=== PATIENT | female | born 1985 | race Asian ===

== ENCOUNTER 2018-01-02 11:09 | Emergency (ER) | payer OTHER, SELFPAY ==
[2018-01-02 11:22] VITALS: BP 119/79; PULSE 76; RESP 16; TEMP 36.9; O2SAT 100; BMI 22.0
--- NOTE | 2018-01-02 11:27 | DI.RAD.S_ITS ---
PROCEDURE: XR HAND LT MIN 3V INDICATIONS: injury TECHNIQUE: 3 views of the hand(s) acquired. COMPARISON: None. FINDINGS: Bones: No fractures or dislocations. Carpal bones are normally aligned. No suspicious bony lesions. Soft tissues: No suspicious soft tissue calcifications. IMPRESSION: No visualized acute fracture or dislocation. However, if clinical concern and/or pain persist, short interval imaging followup in 7-10 days is recommended, as occult injury cannot be definitively excluded. Dictated by: Jessica Hi M.D. on 01/02/2018 at 11:10 Approved by: Jessica Hi M.D. on 01/02/2018 at 11:11
--- NOTE | 2018-01-02 11:27 | DI.RAD.S_ITS ---
PROCEDURE: XR FOREARM RT 2V INDICATIONS: injury TECHNIQUE: 2 views of the forearm were acquired. COMPARISON: None. FINDINGS: Bones: No fractures or dislocations. No suspicious bony lesions. Soft tissues: No suspicious soft tissue calcifications or masses. IMPRESSION: No visualized acute fracture or dislocation. However, if clinical concern and/or pain persist, short interval imaging followup in 7-10 days is recommended, as occult injury cannot be definitively excluded. Dictated by: Jessica Hi M.D. on 01/02/2018 at 11:07 Approved by: Jessica Hi M.D. on 01/02/2018 at 11:10
[2018-01-02 11:29] VITALS: PULSE 70
[2018-01-02] MEDS: IBUPROFEN 400 MG TABLET 800 MG PO (12:04)
[2018-01-02] MEDS: TET,DIPH,PERTUSS(ACELL),VAC/PF 0.5 ML SYRINGE IM (12:05)
--- NOTE | 2018-01-02 12:28 | ED_ITS ---
HPI - Extremity Injury (Upper) General Chief Complaint: Extremity Injury, Upper Stated Complaint: Left hand pain,work injury Time Seen by Provider: 01/02/18 11:42 Source: patient Mode of arrival: ambulatory Limitations: no limitations History of Present Illness HPI narrative: Patient is a 32-year-old female who presents with left arm pain. 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 She has bruising on on the left dorsal side of hand and left upper forearm. She has some numbness and tingling in her fingers but no decreased range of motion. Related Data Previous Rx's Medication Instructions Recorded benzonatate [Tessalon Perles] 100 mg PO TID #21 cap 03/11/17 Allergies Allergy/AdvReac Type Severity Reaction Status Date / Time No Known Allergies Allergy Uncoded 01/02/18 12:17 Review of Systems Review of Systems GENERAL: Denies chills,fever HEENT: Denies throat pain RESPIRATORY: Denies dyspnea, cough, wheezing CARDIOVASCULAR: Denies chest pain, palpitations GASTROINTESTINAL: Denies nausea, vomiting MUSCULOSKELETAL: See HPI SKIN: No rash, no laceration, no pruritus NEUROLOGIC: Denies weakness, dizziness, headache, numbness 8 point review of systems is negative except for those stated above and HPI PFSH Medical History Healthy adult (Acute) Social History Smoking Status: Never smoker Exam Initial Vital Signs Initial Vital Signs: Vital Signs Temperature 98.4 F 01/02/18 11:22 Pulse Rate 76 01/02/18 11:22 Respiratory Rate 16 01/02/18 11:22 Blood Pressure 119/79 01/02/18 11:22 Pulse Oximetry 100 01/02/18 11:22 GENERAL: Well-appearing, well-nourished and in no acute distress. HEENT: Head atraumatic,EOMI, pupils reactive, CARDIOVASCULAR: Regular rate and rhythm without murmurs, rubs or gallops. RESPIRATORY: Breath sounds equal bilaterally, no wheezes rales or rhonchi. EXTREMITIES: Normal range of motion, no clubbing or edema. Neurovascularly intact Left arm has 2 distinct areas of bruising it is not circumferential it is not the entire arm. Good distal pulses. Full range of motion no gross bony deformities. 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 Good opposition of all fingers. NEUROLOGICAL: Alert and oriented x4.Normal gait and speech. SKIN: Contusion left arm, superficial abrasion noted in the left upper arm Extrem Full Arm Back Left: 2 1. Bruise 2. Bruise Course Orders Ordered: ED Orders 01/02/18 11:27 XR forearm LT 2V Stat XR hand LT min 3V Stat Discontinued Medications Diphtheria/Tetanus/Acell Pertussis (Adacel) 0.5 ml IM .ONCE ONE Stop: 01/02/18 11:47 Last Admin: 01/02/18 12:05 Dose: 0.5 ml Ibuprofen (Advil) 800 mg PO NOW ONE Stop: 01/02/18 11:47 Last Admin: 01/02/18 12:04 Dose: 800 mg Vital Signs - 8 hr 01/02/18 11:22 01/02/18 11:29 01/02/18 12:45 Temperature 98.4 F 98.2 F Pulse Rate 76 69 Pulse Rate [Left Radial] 70 Respiratory Rate 16 17 Blood Pressure 119/79 115/67 Pulse Oximetry 100 99 MDM - Extremity Injury (Upper) Imaging Data left schuster x ray: Radiologist's impression: PROCEDURE: XR HAND LT MIN 3V INDICATIONS: injury TECHNIQUE: 3 views of the hand(s) acquired. COMPARISON: None. FINDINGS: Bones: No fractures or dislocations. Carpal bones are normally aligned. No suspicious bony lesions. Soft tissues: No suspicious soft tissue calcifications. IMPRESSION: No visualized acute fracture or dislocation. However, if clinical concern and/or pain persist, short interval imaging followup in 7-10 days is recommended , as occult injury cannot be definitively excluded. Dictated by: Jessica Hi M.D. on 01/02/2018 at 11:10 left arm x ray: Radiologist's impression: PROCEDURE: XR FOREARM RT 2V INDICATIONS: injury TECHNIQUE: 2 views of the forearm were acquired. COMPARISON: None. FINDINGS: Bones: No fractures or dislocations. No suspicious bony lesions. Soft tissues: No suspicious soft tissue calcifications or masses. IMPRESSION: No visualized acute fracture or dislocation. However, if clinical concern and/or pain persist, short interval imaging followup in 7-10 days is recommended , as occult injury cannot be definitively excluded. Dictated by: Jessica Hi M.D. on 01/02/2018 at 11:07 [facility] Narrative Medical decision making narrative: L and I forms completed Discharge Plan Departure Patient Disposition: Home Clinical Impression: Contusion of arm, left, Contusion of hand, left Discharge Date/Time: 01/02/18 12:46 Interventions: ED Discharge Assessment Last Done: 01/02/18 12:45 Instructions: DI for Contusion Activity Restrictions/Additional Instructions: *You have been diagnosed with bruising of left hand and arm *What to do: Ice 20-30 minutes at a time then removed, elevate often, *Continue to take medications as directed Motrin 800 mg every 8 hr if needed for pain *Follow up with your primary care provider in 2-3 days --follow up with L&I and workman's compensation *Return to ER if you should have increasing swelling, numbness, weakness, increased pain or any new, worsening or concerning symptoms Prescriptions: No Action benzonatate [Tesjosé Nash] 100 MG capsule 100 mg PO TID Qty: 21 RF: 0
[2018-01-02 12:45] VITALS: BP 115/67; PULSE 69; RESP 17; TEMP 36.8; O2SAT 99
== END 2018-01-02 12:46 | disposition home or self-care (01) ==
PROVIDERS: Emergency Provider Emergency Medicine
DX: S40.022A Contusion of left upper arm, initial encounter (principal); S60.222A Contusion of left hand, initial encounter; W23.0XXA Caught, crushed, jammed, or pinched between moving objects, initial encounter; Y99.0 Civilian activity done for income or pay
CPT/HCPCS: 73090; 73130; 90471; 99282; 99283; 90715

== ENCOUNTER → 2018-08-17 13:21 | Outpatient (CLI) | payer OTHER, SELFPAY ==
[2018-08-17 19:34] LABS: Urine N gonorrhoeae NOT DETECTED
[2018-08-17 19:41] LABS: Urine Chlamydia NOT DETECTED
== END ==
PROVIDERS: Visit Provider Physician Assistant
DX: N89.8 Other specified noninflammatory disorders of vagina (principal)
CPT/HCPCS: 87210; 87491; 87591

== ENCOUNTER → 2019-08-25 13:01 | Outpatient (CLI) | payer OTHER, SELFPAY ==
--- NOTE | 2019-08-25 | DI.US.S_ITS ---
PROCEDURE: US OB <= 14 WEEKS FETUS INDICATIONS: SIZE AND DATES OUTSIDE/PRIOR DATING DATA: Last menstrual period (LMP): 07/09/19. LMP-based estimated date of delivery (HAYDE): 04/14/20. First dating scan (date and location): 08/25/19. Estimated date of delivery (HAYDE) from first dating scan: 04/18/20. TECHNIQUE: Real-time scanning was performed of the fetus and maternal pelvic organs, with image documentation. Endovaginal scanning was also performed to better visualize the fetus and maternal ovaries. COMPARISON: None. FINDINGS: Embryo: There is single intrauterine gestation with pole and yolk sac seen. heart rate is 118 beats per minute. [place]-rump length measures 4 mm. Estimated gestational age is 6 weeks one day. Estimated gestational age based on last menstrual period is 6 weeks 5 days. No subchorionic bleed. Measurement variability in dating: +/- 4 weeks by LMP, +/- 7 days by mean sac diameter (use before 6 weeks gestation if crown-rump length not able to be measured), +/- 5 days by crown-rump length (up to 8 weeks 6 days gestation), +/- 7 days by crown-rump length (up to 13 weeks 6 days gestation). Maternal organs: Ovaries are not visualized on this study.. Limited images through the kidneys demonstrate no hydronephrosis. IMPRESSION: Single live intrauterine with fetus a yolk sac seen. Estimated gestational age based on current study is 6 weeks one day. Dictated by: Abdelrahman Acevedo M.D. on 08/25/2019 at 15:47 Approved by: Abdelrahman Acevedo M.D. on 08/25/2019 at 15:50
== END ==
PROVIDERS: PCP Student in an Organized Health Care Education/Training Program; Referring Provider Student in an Organized Health Care Education/Training Program; Visit Provider Student in an Organized Health Care Education/Training Program
DX: Z36.87 Encounter for antenatal screening for uncertain dates (principal); Z3A.01 Less than 8 weeks gestation of pregnancy
CPT/HCPCS: 76801; 76817

== ENCOUNTER → 2019-11-25 12:22 | Outpatient (CLI) | payer OTHER, SELFPAY ==
--- NOTE | 2019-11-25 | DI.US.S_ITS ---
PROCEDURE: US OB >= 14 WEEKS FETUS INDICATIONS: SURVEY OUTSIDE/PRIOR DATING DATA: Last menstrual period (LMP): 07/09/2019. LMP-based estimated date of delivery (HAYDE): 04/14/2020 . First dating scan (date and location): 08/25/2019 . Estimated date of delivery (HAYDE) from first dating scan: 04/18/2020 . TECHNIQUE: Real-time scanning was performed of the fetus, with image documentation and biometric measurements. Endovaginal scanning: No COMPARISON: [facility], OB <= 14 WEEKS FETUS, 08/25/2019, 14:10. FINDINGS: General: A single living intrauterine gestation is present. Presentation: Breech. Placenta: Placental position is anterior , without previa. Amniotic fluid index: 12.2 cm, normal range is 5-24 cm. heart rate: 144 beats per minute. Maternal cervical canal: 4.0 cm long. Normal lower limit is 2.5 cm. biometrics: Biparietal diameter: 19 weeks Head circumference: 19 weeks 2 days Abdominal circumference: 19 weeks 5 days Femur length: 19 weeks 2 days Estimated gestational age from initial scan: 19 weeks 2 days Composite gestational age from present scan: 19 weeks 2 days Estimated weight and percentile: 295 g; 57th percentile Measurement variability for biometric dating: +/- 7 days from 14 weeks to 15 weeks 6 days gestation, +/- 10 days from 16 weeks to 21 weeks 6 days gestation, +/- 2 weeks from 22 weeks to 27 weeks 6 days gestation, +/- 3 weeks for 28 weeks gestation or later. weight reference: 4500 g or EFW >90/95% is considered macrosomia or large for gestational age. EFW <10% is small for gestational age. EFW 5% or less is considered intra-uterine growth restriction. Anatomic survey: Neuro: Ventricles are non-dilated at less than 10 mm. Cisterna magna is normal at 3-11 mm. Cerebellum is normal in size and morphology. Choroid plexus cyst. Nuchal skin fold: Normal at less than 6 mm between 14-21 weeks gestational age. Face: Nose and lips are normal. Facial profile not well seen secondary to positioning. Spine: No evidence for spina bifida. Heart: Not well seen. Diaphragm: Diaphragm is intact. Stomach: Left-sided stomach is present. Kidneys: No hydronephrosis. Normal is less than 5 mm in 2nd trimester, less than 7 mm in 3rd trimester. Cord: 3-vessel cord has orthotopic insertion. Bladder: Normal in size. Extremities: All 4 extremities identified. IMPRESSION: 1. Single living IUP redemonstrated and interval growth is normal. 2. Small choroid plexus cyst present: in isolation, no association with aneuploidy. Anatomic survey otherwise is normal. 3. Four-chamber heart, cardiac outflow tracts and the facial profile not well visualized; otherwise normal anatomy. Follow-up recommended. Dictated by: Ismael White [facility] Interpreted: Lluvia Levy MD on 11/25/2019 at 13:33 Approved by: Lluvia Levy M.D. on 11/25/2019 at 17:08
== END ==
PROVIDERS: PCP Student in an Organized Health Care Education/Training Program; Referring Provider Student in an Organized Health Care Education/Training Program; Visit Provider Student in an Organized Health Care Education/Training Program
DX: Z36.89 Encounter for other specified antenatal screening (principal); Z3A.19 19 weeks gestation of pregnancy
CPT/HCPCS: 76811

== ENCOUNTER → 2019-12-28 14:38 | Outpatient (CLI) | payer OTHER, SELFPAY ==
--- NOTE | 2019-12-28 | DI.US.S_ITS ---
PROCEDURE: OB FOLLOW UP INDICATIONS: ANATOMY SCAN F/U OUTSIDE/PRIOR DATING DATA: Last menstrual period (LMP): 07/09/19 . LMP-based estimated date of delivery (HAYDE): 04/14/20 . First dating scan (date and location): 08/25/19 . Estimated date of delivery (HAYDE) from first dating scan: 04/18/20 . TECHNIQUE: Real-time scanning was performed of the fetus, with image documentation and biometric measurements. Endovaginal scanning: Not performed COMPARISON: [facility], OB >= 14 WEEKS FETUS, 11/25/2019, 12:41. [facility], OB <= 14 WEEKS FETUS, 08/25/2019, 14:10. FINDINGS: General: A single living intrauterine gestation is present. Presentation: Vertex. Placenta: Placental position is posterior , without previa. Amniotic fluid index: 13.4 cm, normal range is 5-24 cm. heart rate: 158 beats per minute. Maternal cervical canal: 3.6 cm long. Normal lower limit is 2.5 cm. Estimated gestational age from initial scan: 24 weeks 0 days Other: Normal appearance of the face, four-chamber heart and outflow tracts. IMPRESSION: Single living intrauterine fetus in vertex presentation. Normal appearance of the four-chamber heart , ventricular outflow tracts, and face/profile Dictated by: Curt Hammond M.D. on 12/28/2019 at 17:18 Approved by: Curt Hammond M.D. on 12/28/2019 at 17:21
== END ==
PROVIDERS: PCP Student in an Organized Health Care Education/Training Program; Referring Provider Student in an Organized Health Care Education/Training Program; Visit Provider Student in an Organized Health Care Education/Training Program
DX: Z36.2 Encounter for other antenatal screening follow-up (principal); Z3A.24 24 weeks gestation of pregnancy
CPT/HCPCS: 76816

== ENCOUNTER → 2020-03-22 16:57 | Outpatient (ROUT) | payer SELFPAY | PROVIDERS: PCP Student in an Organized Health Care Education/Training Program; Visit Provider Student in an Organized Health Care Education/Training Program | DX: Z34.82 Encounter for supervision of other normal pregnancy, second trimester (principal) | CPT/HCPCS: 87081; 87147 ==

== ENCOUNTER 2020-04-19 09:13 | Inpatient (IN) | payer OTHER, MEDICAID, SELFPAY ==
[2020-04-19 10:13] LABS: Add Manual Diff / Slide Review NO; Basophils Absolute Auto 0 /uL (0-100); Basophils Percent Auto 0.3 % (0-2); Eosinophils Absolute Auto 0 /uL (0-450); Eosinophils Percent Auto 0.1 % (2-4); Hematocrit 36.5 % (36-46); Hemoglobin 12.5 g/dL (12.0-16.0); Lymphocytes Absolute Auto 1700 /uL (1100-4500); Lymphocytes Percent Auto 11.7 % (25-40); Mean Corpuscular HGB Conc 34.1 % (30-36); Mean Corpuscular Hemoglobin 29.4 PG (26-34); Mean Corpuscular Volume 86.2 fL (80-100); Monocytes Absolute Auto 700 /uL (0-900); Monocytes Percent Auto 5.1 % (3-14); Neutrophils Absolute Auto 11900 /uL (1500-7000); Neutrophils Percent Auto 82.8 % (50-75); Platelet Count 218 X10^3/uL (150-400); Red Blood Cell Count 4.23 X10^6/uL (4.0-5.2); Red Cell Distribution Width 13.1 % (11.6-14.8); White Blood Cell Count 14.4 X10^3/uL (4.5-11.0)
[2020-04-19 10:14] LABS: COVID19 -Nasal RAPID Negative (Negative)
--- NOTE | 2020-04-19 13:24 | P.HP_ITS ---
History of Present Illness History of Present Illness Date Patient Seen: 04/19/20 Time Patient Seen: 10:00 Date of Onset of Symptoms: 04/19/20 Chief complaint: maternity Narrative: Marilyn is a 34 year old at 40w1d with HAYDE of 04/18/20 per first trimester ultrasound. She presents completely dilated and in active labor. Her course has been complicated by anemia, treated with iron. LABS/IMAGING: ABO O positive, antibody negative on 08/25/2019. Rubella immune. Hepatitis-B surface antigen negative. HIV, HSV 1 and 2 negative. GC/chlamydia negative. Treponemal antibody negative. Varicella titer positive. Pap smear plus HPV DNA negative on 09/10/2019. Urine culture negative on 09/10/2019. Hemoglobin/he matocrit 10.8/32.3 on 08/25/2019. Repeat hemoglobin/hematocrit 11.9/32.7 on 03/22/2020. TSH within normal limits. 1 hour Glucola negative on 02/09/2020. GBS with light growth on 03/22/20, strep agalactiae. NIPT negative, 01/17/20, female. Dating US: Anatomy Scan: OBSTETRIC HISTORY: 09/17/2008, at 40 WGA, viable male 05/14/2011, at 40 WGA, viable female GYNECOLOGICAL HISTORY: None PAST MEDICAL HISTORY: Anemia PAST SURGICAL HISTORY: None FAMILY HISTORY: No congenital defects. SOCIAL HISTORY: [id number] mother. 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 Originally from the [facility]. No tobacco alcohol, or illicit drug use. Patient History Medical History (Updated 01/17/18 @ 00:00 by ) Healthy adult Family & Social History Tobacco & Substance use: Smoking Status Never smoker Substance Use Type does not use Meds Home Medications and Allergies Home Medications Medication Instructions Recorded Confirmed Type No Known Home Medications 08/17/18 04/19/20 History Allergies Allergy/AdvReac Type Severity Reaction Status Date / Time No Known Drug Allergies Allergy Verified 04/19/20 12:48 Review of Systems Review of Systems ROS: Yes All systems reviewed with the patient and are negative except as otherwise documented Exam Narrative Exam Narrative: General: NAD Skin: Color unremarkable, no rash nor lesions HEENT: Neck supple with midline trachea Lungs: CTAB Heart: Normal rate, and regular rhythm, S1, S2 normal, no murmur, click, rub or gallop Abdomen: Gravid, soft, non-tender Extremities: No cord, no edema, no cyanosis Pelvis: Normal female external genitalia Presentation: vertex Cervix: 10/100/+1 Monitoring: Variability: Moderate Baseline: 140s Accelerations: Present Decelerations: Absent Contractions: Every 3 minutes Strength: Moderate Objective Labs Result Diagrams: 04/19/20 10:01 Labs: Laboratory Results - last 24 hr 04/19/20 04/19/20 04/19/20 09:49 10:01 10:01 WBC 14.4 H RBC 4.23 Hgb 12.5 Hct 36.5 MCV 86.2 MCH 29.4 MCHC 34.1 RDW 13.1 Plt Count 218 Neut % (Auto) 82.8 H Lymph % (Auto) 11.7 L [place] % (Auto) 5.1 Eos % (Auto) 0.1 L Baso % (Auto) 0.3 Neut # (Auto) 23038 H Lymph # (Auto) 1700 [place] # (Auto) 700 Eos # (Auto) 0 Baso # (Auto) 0 COVID-19 PCR Negative Blood Type O Positive Antibody Screen Negative Assessment & Plan Assessment & Plan narrative: 1. IUP at 40w1d 2. 3. Active Labor 4. GBS positive with light growth Plan: Admit to Labor and delivery with routine orders. Anticipate vaginal delivery. Questions answered, appropriate consents will be signed.
--- NOTE | 2020-04-19 13:25 | PM.OBPRVD ---
Events: Meconium Stained Fluid Labor & Delivery Delivery date: 04/19/20 Intrapartal events: Precipitous Labor < 3 hours Delivery monitor: external FHT Route of delivery: L&D Laceration Description: None Estimated blood loss (mL): 400 Anesthesia Type: None Complications: None. Narrative: On 04/19/20, this 34 year old , GBS positive female under no anesthesia delivered a viable female with unknown weight and scores of 8/9. Delivery was via normal spontaneous vaginal delivery at 12:28. Due to precipitous labor, chemoprophylaxis for GBS was not able to be administered. There were no nuchal cords. Cord clamped and cut and infant handed to mother. Cord blood sent for analysis. Intact placenta with three-vessel cord was delivered spontaneously at 12:32. 10 mg of IM Pitocin and 600 mcg of oral cytotec administered. Uterus, cervix, vagina, and rectum explored and found to be intact. Estimated blood loss 400 cc. Patient remained in the delivery room in stable condition. remained in the delivery room in stable condition. Plan for aftercare: Routine care.
[2020-04-19] MEDS: KETOROLAC 30 MG/ML VIAL IV ×2 (15:30→21:49)
[2020-04-20 06:38] LABS: Hematocrit 33.7 % (36-46); Hemoglobin 11.4 g/dL (12.0-16.0)
--- NOTE | 2020-04-20 08:08 | PM.OBDS.1 ---
Discharge Providers Provider Date of admission: 04/19/20 09:13 Discharge Date: 04/20/20 Primary care physician: Vivienne Bates MD Consults: 04/20/20 13:25 Consult to Intensive Care Medicine Specialist Routine Comment: Discharge provider: Vivienne Bates MD Summary Hospital Course Date Patient Seen: 04/20/20 Time Patient Seen: 08:09 Procedures: 1. , 04/19/20, viable female, APGARS 8/9, no complications, Dr. Bates Hospital Course: Unremarkable. Mother is well. Tolerating full diet with no nausea or vomiting. Ambulating well. Lochia less than menses. On day of discharge, she is afebrile with stable vital signs throughout. Discharge diagnoses: 1. 34 yo 2. Status post at 40w1d Peripartum Data Delivery Method: Natural Vaginal Laceration Description: None Episiotomy description: None complications: none Status at Discharge Cognitive/behavioral status at discharge: at baseline, oriented Functional status at discharge: independent ambulation Overall status at discharge: patient is progressing back to baseline Time Spent with Patient Time attestation: Total time spent providing and/or coordinating discharge services: 35 Objective Labs Result Diagrams: 04/20/20 06:24 Labs: Laboratory Results - last 24 hr 04/19/20 04/19/20 04/19/20 09:49 10:01 10:01 WBC 14.4 H RBC 4.23 Hgb 12.5 Hct 36.5 MCV 86.2 MCH 29.4 MCHC 34.1 RDW 13.1 Plt Count 218 Neut % (Auto) 82.8 H Lymph % (Auto) 11.7 L [place] % (Auto) 5.1 Eos % (Auto) 0.1 L Baso % (Auto) 0.3 Neut # (Auto) 70912 H Lymph # (Auto) 1700 [place] # (Auto) 700 Eos # (Auto) 0 Baso # (Auto) 0 COVID-19 PCR Negative Blood Type O Positive Antibody Screen Negative 04/20/20 06:24 WBC RBC Hgb 11.4 L Hct 33.7 L MCV MCH MCHC RDW Plt Count Neut % (Auto) Lymph % (Auto) [place] % (Auto) Eos % (Auto) Baso % (Auto) Neut # (Auto) Lymph # (Auto) [place] # (Auto) Eos # (Auto) Baso # (Auto) COVID-19 PCR Blood Type Antibody Screen Exam Narrative Exam Narrative: General: NAD Skin: Color unremarkable, no rash nor lesions HEENT: Neck supple with midline trachea Lungs: CTAB Heart: Normal rate and regular rhythm, S1, S2 normal, no murmurs, click, rubs or gallops Abdomen: FF, U-1, soft, non-tender, +BS Extremities: No edema, no cyanosis Discharge Plan Discharge Plan Patient Disposition: Home Discharge orders & Medications Prescriptions: New Prenatabs Rx 29 mg iron- 1 mg Tablet 1 tab PO DAILY Qty: 90 RF: 3 ibuprofen 600 mg tablet 600 mg PO Q8H PRN (Reason: pain (scale score 4-6)) Qty: 45 RF: 2 docusate sodium 100 mg capsule 100 mg PO BID PRN (Reason: constipation) Qty: 30 RF: 3 Follow up/Referrals: Vivienne Bates MD [Primary Care Provider] - Diet/Activity/Treatments Diet: Diet as Tolerated Activity: 1. Routine care 2. No driving for 2 weeks. 3. Call or return for uncontrolled pain, fever, intractable nausea or vomiting, trouble with urination, heavy vaginal bleeding greater than 1 pad per hour, suicidal/homicidal thoughts, signs or symptoms of infection, or any other concerns. Skin/Wound/Dressing Care Report to your healthcare provider any signs of infection, such as:: chills, fever, increased pain, unusual drainage and unusual redness Visit Report/Discharge Packet Stand Alone Forms: Discharge: Care Discharge Data Primary Care Provider: Vivienne Bates
[2020-04-20] MEDS: PRENATAL VIT,CALC/IRON/FOLIC 1 TABLET 1 TAB PO (09:46)
[2020-04-20 09:53] VITALS: BP 136/91
[2020-04-20 11:28] VITALS: BP 143/87; PULSE 80; RESP 16; TEMP 35.9
== END 2020-04-20 16:25 | disposition home or self-care (01) | DRG 560 ==
PROVIDERS: Admitting Provider Student in an Organized Health Care Education/Training Program; PCP Student in an Organized Health Care Education/Training Program; Referring Provider Student in an Organized Health Care Education/Training Program; Visit Provider Student in an Organized Health Care Education/Training Program
DX: O48.0 Post-term pregnancy (principal); O98.82 Other maternal infectious and parasitic diseases complicating childbirth; B95.1 Streptococcus, group B, as the cause of diseases classified elsewhere; O62.3 Precipitate labor; Z20.828 Contact with and (suspected) exposure to other viral communicable diseases; Z3A.40 40 weeks gestation of pregnancy; Z37.0 Single live birth; O77.0 Labor and delivery complicated by meconium in amniotic fluid
CPT/HCPCS: 36415; 59050; 85014; 85018; 85025; 86850; 86900; 86901; 87635; G0379; J1885